=== PATIENT | male | born 1935 | race Caucasian/White ===

== ENCOUNTER 2017-11-10 17:40 | Emergency (ER) | payer OTHER ==
[~2017-11-10] VITALS: Ht 190.5 cm; Wt 112.5 kg
[2017-11-10 17:45] VITALS: BP 182/89
[2017-11-10 20:41] LABS: Urine Bacteria NONE SEEN /hpf (None Seen); Urine Blood Negative /uL (Negative); Urine Specific Gravity 1.006 (1.001-1.035); Urine WBC <1 /hpf (0 - 3)
== END 2017-11-11 09:12 | disposition left against medical advice (07) ==
LOC: EDBD 17:40 → ER 17:40
DX: K59.00 Constipation, unspecified (principal); Z53.21 Procedure and treatment not carried out due to patient leaving prior to being seen by health care provider
CPT/HCPCS: 81001; 93005

== ENCOUNTER 2018-08-09 11:57 | Inpatient (IN) | payer OTHER ==
[~2018-08-09] VITALS: Ht 190.5 cm; Wt 44.6 kg
[2018-08-09 12:34] LABS: Basophils # (auto) 0 uL; Basophils % (auto) 0.6 % (0.0-2.0); Eosinophils # (auto) 0.1 uL; Eosinophils % (auto) 3.1 % (0.0-7.0); Hemoglobin 11.9 g/dL (13.5-17.5); Lymphocytes # (auto) 0.3 uL; Lymphocytes % (auto) 10.2 % (10.0-50.0); Mean Corpuscular Hemoglobin 28.8 pg (28.0-32.0); Mean Corpuscular Hgb Conc. 34.1 g/dL (32.0-36.0); Mean Corpuscular Volume 84.5 fL (80.0-100.0); Monocytes # (auto) 0.3 uL; Monocytes % (auto) 8.4 % (0.0-12.0); Neutrophils # (auto) 2.7 uL; Neutrophils % (auto) 77.7 % (37.0-80.0); Nucleated Red Blood Cells % 0.1 %; Platelet Count (auto) 178 10^3/uL (140-450); Red Blood Cells 4.14 10^6/uL (4.5-5.90); Red Cell Distribution Width 18.4 % (11.8-14.3); White Blood Cell 3.4 10^3/uL (4.4-10.8)
[2018-08-09 12:53] LABS: Alanine Aminotransferase 24 U/L (16-61); Albumin 3.5 g/dL (3.4-5.0); Alkaline Phosphatase 52 U/L (45-117); Anion Gap 8 (5-15); Aspartate Aminotransferase 15 U/L (15-37); BUN/Creatinine Ratio 15.6; Bilirubin, Total 0.7 mg/dL (0.2-1.0); Blood Urea Nitrogen 15 mg/dL (7-18); Calcium 8.6 mg/dL (8.5-10.1); Carbon Dioxide 22 mmol/L (21-32); Chloride 97 mmol/L (98-107); GFR African American 96 mL/min; GFR Non-African American 80 mL/min; Glucose 169 mg/dL (74-106); Magnesium 2.4 mg/dL (1.6-2.6); Sodium 127 mmol/L (136-145); Total Protein 5.8 g/dL (6.4-8.2)
[2018-08-09 13:46] LABS: INR 1.06 (0.9-1.15); Partial Thromboplastin Time 27.1 sec (23.78-33.04); Prothrombin Time 11.3 sec (9.27-12.13)
[2018-08-09] MEDS ORDERED: HYDROcodone-ACET 5/325MG TAB PO PRN (17:00)
[2018-08-09] MEDS ORDERED: LACTULOSE 20Gm/30ML SOLN PO PRN (17:00)
[2018-08-09] MEDS ORDERED: TEMAZEPAM 15 MG CAP PO PRN (17:00)
[2018-08-09] MEDS: InsuLIN REG 1unit/0.01ml Soln (100units/ml) SC SCH ×2 (17:00→23:46)
[2018-08-09] MEDS ORDERED: MORPHINE SULFATE 4 MG/ML SYR/VIAL IV PRN ×2 (17:00)
[2018-08-09] MEDS ORDERED: ACETAMINOPHEN 500 MG TAB PO PRN (17:00)
[2018-08-09] MEDS ORDERED: DEXTROSE (50%) 50ML SYRG IV PRN (17:00)
[2018-08-09] MEDS ORDERED: NITROGLYCERIN 0.4 MG SL TAB SL PRN (17:00)
[2018-08-09] MEDS ORDERED: LORazepam 0.5 MG TAB PO PRN (17:00)
[2018-08-09] MEDS ORDERED: ONDANSETRON HCL 4 MG/2 ML VIAL IV PRN (17:00)
[2018-08-09] MEDS: ACCU-CHEK COMFORT CURVE STRIP VI SCH ×2 (17:15→23:45)
[2018-08-09] MEDS: SODIUM CHLORIDE 0.9% 1,000 ML IV SCH (17:21)
[2018-08-09 18:06] LABS: CRP High Sensitivity 0.03 mg/dL (< 0.3)
[2018-08-09] MEDS: ATORVASTATIN 20 MG TAB PO SCH (23:45)
[2018-08-10] MEDS: SODIUM CHLORIDE 0.9% 1,000 ML IV SCH ×2 (06:18→20:04)
[2018-08-10] MEDS: ACCU-CHEK COMFORT CURVE STRIP VI SCH ×4 (06:54→21:30)
[2018-08-10] MEDS: InsuLIN REG 1unit/0.01ml Soln (100units/ml) SC SCH ×4 (06:54→21:30)
[2018-08-10 07:00] LABS: Basophils # (auto) 0 uL; Basophils % (auto) 1.2 % (0.0-2.0); Eosinophils # (auto) 0.1 uL; Hematocrit 37.5 % (41.0-53.0); Hemoglobin 12.6 g/dL (13.5-17.5); Lymphocytes # (auto) 0.5 uL; Lymphocytes % (auto) 17.1 % (10.0-50.0); Mean Corpuscular Hemoglobin 28.5 pg (28.0-32.0); Mean Corpuscular Hgb Conc. 33.6 g/dL (32.0-36.0); Mean Corpuscular Volume 84.7 fL (80.0-100.0); Monocytes # (auto) 0.4 uL; Monocytes % (auto) 12.7 % (0.0-12.0); Neutrophils # (auto) 1.8 uL; Nucleated Red Blood Cells % 0.2 %; Platelet Count (auto) 163 10^3/uL (140-450); Red Blood Cells 4.43 10^6/uL (4.5-5.90); Red Cell Distribution Width 18.3 % (11.8-14.3); White Blood Cell 2.8 10^3/uL (4.4-10.8)
[2018-08-10 07:02] LABS: Albumin 3.5 g/dL (3.4-5.0); BUN/Creatinine Ratio 21.8; Bilirubin, Total 0.7 mg/dL (0.2-1.0); Calcium 8.9 mg/dL (8.5-10.1); Potassium 4.2 mmol/L (3.5-5.1); Total Protein 5.8 g/dL (6.4-8.2)
[2018-08-10 08:50] VITALS: BP 139/62
[2018-08-10] MEDS ORDERED: ENOXAPARIN SOD 40 MG/0.4 ML SYRINGE SC SCH (10:00)
[2018-08-10] MEDS: PANTOPRAZOLE 40 MG TAB PO SCH (10:43)
[2018-08-10] MEDS: ASPirin 81 mg TAB PO SCH (10:43)
[2018-08-10] MEDS: NITROGLYCERIN 0.2MG/HR TOPICAL PATCH TD SCH (10:45)
[2018-08-10 12:00] VITALS: BP 119/64
[2018-08-10] MEDS ORDERED: GLIP-116 PO (15:39)
[2018-08-10] MEDS ORDERED: MET5XLT PO (15:39)
[2018-08-10] MEDS ORDERED: METF-372 PO (15:39)
[2018-08-10] MEDS ORDERED: ATOR40TA52 PO (15:39)
[2018-08-10] MEDS ORDERED: FINA5TAB4 PO (15:39)
[2018-08-10] MEDS ORDERED: CLOP75TA41 PO (15:39)
[2018-08-10] MEDS ORDERED: ASPI-231 PO (15:39)
[2018-08-10] MEDS ORDERED: PANT40TA2 PO (15:39)
[2018-08-10] MEDS ORDERED: FURO20TA3 PO (15:39)
[2018-08-10] MEDS ORDERED: OXYB15TA12 PO (15:39)
[2018-08-10] MEDS ORDERED: LEV100T PO (15:39)
[2018-08-10] MEDS ORDERED: NITR0.4S29 SL (15:39)
[2018-08-10] MEDS ORDERED: LISI-646 PO (15:39)
[2018-08-10 15:52] VITALS: BP 127/61
[2018-08-10 19:57] VITALS: BP 130/60
[2018-08-10] MEDS: ATORVASTATIN 20 MG TAB PO SCH (21:30)
[2018-08-11] VITALS: BP 132/70
[2018-08-11 04:00] VITALS: BP 123/59
[2018-08-11 05:48] LABS: Calcium 8.3 mg/dL (8.5-10.1); Magnesium 2.1 mg/dL (1.6-2.6); Potassium 4.3 mmol/L (3.5-5.1)
[2018-08-11 05:51] LABS: BUN/Creatinine Ratio 17.1
[2018-08-11] MEDS: ACCU-CHEK COMFORT CURVE STRIP VI SCH ×3 (05:59→17:00)
[2018-08-11] MEDS: InsuLIN REG 1unit/0.01ml Soln (100units/ml) SC SCH ×3 (06:11→17:00)
[2018-08-11 08:00] VITALS: BP 134/63
[2018-08-11] MEDS ORDERED: LIDOCAINE 2% (LOCAL ANESTH.) PF 5ml SDV ONE (08:51)
[2018-08-11] MEDS ORDERED: IOHEXOL 350 MG/ML 100ML IJ ONE ×3 (08:52→09:52)
[2018-08-11] MEDS ORDERED: fentaNYL CITRATE 100 MCG/2 ML VL ONE (09:16)
[2018-08-11] MEDS ORDERED: ANGIOMAX 250 MG VIAL IV ONE ×2 (09:16→10:10)
[2018-08-11] MEDS ORDERED: MIDAZOLAM HCL 1MG/1ML-2 ML VIAL ONE (09:16)
[2018-08-11] MEDS ORDERED: SODIUM CHL 0.9% 50 ML ONE ×2 (09:16→10:10)
[2018-08-11] MEDS: SODIUM CHLORIDE 0.9% 1,000 ML IV SCH (09:30)
[2018-08-11] MEDS: ASPirin 81 mg TAB PO SCH (10:00)
[2018-08-11] MEDS ORDERED: ASPirin 81 mg TAB ONE (10:16)
[2018-08-11] MEDS ORDERED: CLOPIDOGREL BISULFATE 75 MG TAB ONE (10:16)
[2018-08-11] MEDS: PANTOPRAZOLE 40 MG TAB PO SCH (11:39)
[2018-08-11] MEDS: NITROGLYCERIN 0.2MG/HR TOPICAL PATCH TD SCH (11:39)
[2018-08-11 11:50] VITALS: BP 146/64
[2018-08-11 15:51] VITALS: BP 133/55
[2018-08-11 16:10] VITALS: BP 133/55
[2018-08-12] MEDS ORDERED: CLOPIDOGREL BISULFATE 75 MG TAB PO SCH (10:00)
== END 2018-08-11 18:43 | disposition home or self-care (01) | DRG 246 ==
LOC: ER 11:57 → EDBD 11:57 → TELE 11:58 → DOU IN ICU 08-10 08:33
PROVIDERS: ADMIT Internal Medicine; ATTEND Internal Medicine
PROC: 027135Z Dilation of Coronary Artery, Two Arteries with Two Drug-eluting Intraluminal Devices, Percutaneous Approach (ICD-10-PCS; principal; 2018-08-11)
PROC: 4A023N7 Measurement of Cardiac Sampling and Pressure, Left Heart, Percutaneous Approach (ICD-10-PCS; 2018-08-11)
PROC: B2111ZZ Fluoroscopy of Multiple Coronary Arteries using Low Osmolar Contrast (ICD-10-PCS; 2018-08-11)
PROC: B2151ZZ Fluoroscopy of Left Heart using Low Osmolar Contrast (ICD-10-PCS; 2018-08-11)
DX: T82.855A Stenosis of coronary artery stent, initial encounter (principal); I50.43 Acute on chronic combined systolic (congestive) and diastolic (congestive) heart failure; I25.110 Atherosclerotic heart disease of native coronary artery with unstable angina pectoris; E87.1 Hypo-osmolality and hyponatremia; Y83.8 Other surgical procedures as the cause of abnormal reaction of the patient, or of later complication, without mention of misadventure at the time of the procedure; Y92.89 Other specified places as the place of occurrence of the external cause; R00.1 Bradycardia, unspecified; E11.9 Type 2 diabetes mellitus without complications; N40.0 Benign prostatic hyperplasia without lower urinary tract symptoms; D64.9 Anemia, unspecified; I70.0 Atherosclerosis of aorta; E78.5 Hyperlipidemia, unspecified; I35.0 Nonrheumatic aortic (valve) stenosis; Z82.49 Family history of ischemic heart disease and other diseases of the circulatory system; Z87.891 Personal history of nicotine dependence; Z95.5 Presence of coronary angioplasty implant and graft; Z88.0 Allergy status to penicillin; Z79.84 Long term (current) use of oral hypoglycemic drugs; I11.0 Hypertensive heart disease with heart failure
CPT/HCPCS: 36415; 71045; 80048; 80053; 80061; 82550; 82962; 83036; 83735; 83880; 84443; 84484; 85025; 85379; 85610; 85652; 85730; 86141; 87081; 92921; 92928; 93005; 93458; 94761; 99152; A6257; C1874; J1815; J2001; J2250; J2405